=== PATIENT | female | born 1965 | race Caucasian/White ===

== ENCOUNTER → 2016-05-15 | Outpatient (CLI) | payer BC, OTHER ==
[~2016-05-15] MED LIST: ALBUAER2 INH; B-COCAP2 PO; BND25X PO; MESA400T PO; VALTREX PO; ZYRUNK PO
== END | disposition home or self-care (01) ==
LOC: C.PAPS 11:51
PROVIDERS: ATTEND Obstetrics & Gynecology
DX: Z01.419 Encounter for gynecological examination (general) (routine) without abnormal findings (principal)

== ENCOUNTER → 2016-06-18 | Outpatient (CLI) | payer OTHER | END | disposition home or self-care (01) | LOC: C.LABSPEC 09:22 | PROVIDERS: ATTEND Internal Medicine | DX: K51.20 Ulcerative (chronic) proctitis without complications (principal) ==

== ENCOUNTER → 2016-06-18 | Outpatient (CLI) | payer OTHER | END | disposition home or self-care (01) | LOC: C.MAMM 08:24 | PROVIDERS: ATTEND Internal Medicine | DX: K51.20 Ulcerative (chronic) proctitis without complications (principal) ==

== ENCOUNTER → 2016-11-01 | Outpatient (CLI) | payer OTHER | END | disposition home or self-care (01) | LOC: C.LAB 09:27 | DX: R15.9 Full incontinence of feces (principal); R10.32 Left lower quadrant pain; K62.5 Hemorrhage of anus and rectum; K51.20 Ulcerative (chronic) proctitis without complications ==

== ENCOUNTER → 2017-05-19 | Outpatient (CLI) | payer OTHER | END | disposition home or self-care (01) | LOC: C.PAPS 09:32 | PROVIDERS: ATTEND Obstetrics & Gynecology | DX: Z01.419 Encounter for gynecological examination (general) (routine) without abnormal findings (principal) ==

== ENCOUNTER → 2017-05-29 | Outpatient (CLI) | payer OTHER ==
--- NOTE | 2017-05-29 14:35 | MAMMOGRAPHY REPORT ---
BILATERAL DIGITAL DIAGNOSTIC MAMMOGRAM TOMOSYNTHESIS WITH CAD AND TARGETED BILATERAL ULTRASOUND: 2017 CLINICAL HISTORY: Six-month follow-up of right breast masses. Family history of breast cancer. The patient reports no current complaints. TECHNIQUE: Breast tomosynthesis in addition to standard 2D mammography was performed. Current study was also evaluated with a Computer Aided Detection (CAD) system. Bilateral CC and MLO 2-D and tomosy nthesis images were obtained. COMPARISON: Comparison is made to exams dated: 01/03/2016 ultrasound, 01/03/2016 mammogram, 07/03/2015 ult rasound, 07/03/2015 mammogram, 06/27/2015 mammogram, and 06/23/2014 mammogram - [facility]. BREAST COMPOSITION: The tissue of both breasts is heterogeneously dense, which may obscure small mas ses. FINDINGS: There is a lobulated 10 mm mass within the right upper outer quadrant which appears slight ly increased compared to prior exams. Additionally, there is a lobulated 11 x 7 mm mass in the left 9:00 anterior breast which also appears slightly increased compared to the prior 2015 exam. The lakia gonzales of both breasts are stable compared to prior exams. At least 2 other lobulated benign-appearin g masses seen within the right breast on the tomosynthesis images do not appear significantly changed . A biopsy marker clip is again noted within the right medial breast from prior benign biopsy. Targeted ultrasound was performed of the previously seen right breast masses for which a follow-up wa s recommended. In the right breast at 10:00, 3 cm from the nipple, there is a lobulated anechoic mas s with multiple thin internal septations measuring 10 x 3 mm. This appears slightly increased compar ed to prior exams although likely represents a cyst cluster. In the right breast at 8:00 periareolar region (previously labeled subareolar region), there is a lobulated circumscribed anechoic mass with a few thin internal septations measuring 7 x 5 x 5 mm, not significantly changed. An adjacent simil ar-appearing circumscribed anechoic mass with a thin internal septation measuring 6 x 4 x 7 mm is see n within the right breast at 7:00 periareolar region, also not significantly changed. Targeted ultra sound was performed of the left 9:00 breast in the region of the increasing mammographic mass. In th e left breast at 9:00 periareolar region, there is a lobulated anechoic mass with multiple thin inter nal septations, measuring 9 x 7 x 5 mm. This corresponds with the increasing mammographic mass. All of the bilateral breast masses appear similar and likely represent microcyst clusters. However, pap illary lesions can sometimes have a similar appearance. Recommend ultrasound-guided biopsy of the mo st prominent mass, in the left 9:00 breast. IMPRESSION: ACR BI-RADS CATEGORY 4: SUSPICIOUS, TARGETED ULTRASOUND ACR BI-RADS CATEGORY 4: SUSPICIO US Multiple bilateral similar-appearing masses, two of which have slightly increased compared to prior e xams. The masses likely represent microcyst clusters, however, papillary lesions can sometimes have a similar appearance. Recommend ultrasound guided core needle biopsy of the most prominent mass whic h has increased, in the left 9:00 breast. Management of the other similar-appearing masses will be b ased on the pathology results of the left breast biopsy. A phone call was made to the physician's office to confirm faxed results were received. The patient has been verbally notified of the results. She tentatively scheduled the biopsy before leaving the [facility]. Approximately 10% of breast cancers are not detected with mammography. A negative mammographic report should not delay biopsy if a clinically suggestive mass is present. Rose Bolanos M.D. ah/:05/29/2017 12:14:45 Floor Assembler: Rosalinda NATH)(Giat), [facility] letter sent: Abnormal 4/5 BI-RADS Code: ACR BI-RADS Category 4: Suspicious Ultrasound BI-RADS: ACR BI-RADS Category 4: Suspici ous
== END | disposition home or self-care (01) ==
LOC: C.MAMM 08:11
PROVIDERS: ATTEND Obstetrics & Gynecology
DX: R92.2 Inconclusive mammogram (principal); Z80.3 Family history of malignant neoplasm of breast

== ENCOUNTER → 2017-06-11 | Outpatient (CLI) | payer OTHER ==
--- NOTE | 2017-06-11 09:00 | Discharge Instructions ---
Discharge Instructions Procedure Procedure Date: Jun 11, 2017. Reason for visit: Left Mass. Discharge Discharge Date: Jun 11, 2017. Discharge Diagnosis: status post breast biopsy Instructions Activity Recommendations: Additional Limitations (see below) Return to School/Work: no limitations Recommended Home Diet: No Limitations Provider Instructions: ACTIVITY RECOMMENDATIONS: * No lifting, pushing, pulling or exercising the affected side for three days. RETURN TO SCHOOL/WORK: * You may return to work/school after the procedure, but do not perform any strenuous activities for 24 to 48 hours. MEDICATIONS: * Tylenol (two 325 mg) every four to six hours if needed for mild pain (if not allergic to Tylenol). DIET: * Resume previous diet. SPECIAL CARE INSTRUCTIONS: * Keep biopsy site dry for 24 hours. May shower after 24 hours, but do not soak (bathe) incision. * May remove Tegaderm (plastic patch) tomorrow AFTER showering. * Leave the steri-strips on for one week. Allow the steri-strips to fall off by themselves. If not off after one week, you may remove them. You may place a Bandaid crosswise over the strips, if desired. * Apply ice 10 minutes on and 10 minutes off as needed. * Wear a bra at bedtime to sleep more comfortably for 2-3 days. * Your referring physician should have the results after approximately 5 to 7 business days. * Call for unusual bleeding, fever, drainage, etc or if you have any questions call during normal business hours or after hours call Dr Bolanos, . FOLLOW UP VISIT: Follow-up with Referring Physician as scheduled. Allergies Coded Allergies: No Known Allergies (Verified , 06/10/02) Betty Gaona Recommendations: Call your doctor if: * Temperature above 101 degrees * Pain not relieved by pain medicine ordered * There is increased drainage or redness from any incision * You have any unanswered questions or concerns. Your Doctors Instructions noted above were prepared by provider Rose Bolanos. Patient Signature Section: Patient Instructions Signature Page Josefina Stoll Patient (or Guardian) Signature/Date: I have read and understand the instructions given to me by my caregivers. Caregiver/RN/Doctor Signature/Date: The above-named patient and/or guardian has received patient instructions on this date. + Original Patient Signature Page (only) stays with chart. Please make copy for patient.
--- NOTE | 2017-06-11 15:21 | MAMMOGRAPHY REPORT ---
ULTRASOUND GUIDED BIOPSY LEFT BREAST: 06/11/2017 CLINICAL HISTORY: Left 9:00 periareolar breast mass. PATIENT CONSENT: The procedure, risks and benefits were discussed with the patient and informed writt en consent was obtained. A timeout was performed immediately prior to the procedure. PROCEDURE DESCRIPTION: With ultrasound guidance, aseptic technique, and lidocaine as the local anesth etic (1% lidocaine to anesthetize the skin and 1% lidocaine with epinephrine to anesthetize the deepe r tissues), the mass of concern in the left 9:00 periareolar breast was sampled 3 times with a [employer] biopsy needle. Immediately thereafter, with ultrasound guidance, aseptic technique, and lidocaine as the local anesthetic, a metallic localizer clip was placed at the biopsy site. Direct p ressure was applied to the site immediately post procedure and hemostasis was achieved. Postprocedur e unilateral mammograms were performed to confirm placement of the clip in the expected location of t he breast mass. The patient tolerated the procedure without complication. She was given wound care instructions. The specimens were sent to pathology for analysis. COMPARISON: Comparison is made to exams dated: 05/29/2017 mammogram, 05/29/2017 ultrasound, and 01/03/2016 ultrasound - [facility]. IMPRESSION: ULTRASOUND GUIDED BIOPSY Ultrasound-guided core needle biopsy of the left 9:00 periareolar breast mass, with clip placement. The patient will receive pathology results from her referring provider. Rose Bolanos M.D. ah/:06/11/2017 09:01:16 It Infrastructure Manager: Rosalinda NATH)(M), [facility]
--- NOTE | 2017-06-11 15:25 | MAMMOGRAPHY REPORT ---
UNILATERAL LEFT DIGITAL DIAGNOSTIC MAMMOGRAM TOMOSYNTHESIS: 06/11/2017 CLINICAL HISTORY: Status post left breast biopsy. TECHNIQUE: Breast tomosynthesis in addition to standard 2D mammography was performed. Postprocedura l left CC and ML tomosynthesis images were obtained. COMPARISON: Comparison is made to exams dated: 05/29/2017 mammogram, 05/29/2017 ultrasound, 01/03/2016 ult rasound, 01/03/2016 mammogram, 07/03/2015 ultrasound, and 07/03/2015 mammogram - [facility]. BREAST COMPOSITION: The tissue of the left breast is heterogeneously dense, which may obscure small masses. FINDINGS: A new ribbon-shaped biopsy marker clip is seen at the site of the biopsied mass in the lef t 9:00 periareolar breast. No significant postbiopsy hematoma is seen. IMPRESSION: POST PROCEDURE IMAGING FOR MARKER PLACEMENT New biopsy marker clip status post left breast biopsy. Pathology results are pending. Approximately 10% of breast cancers are not detected with mammography. A negative mammographic report should not delay biopsy if a clinically suggestive mass is present. Rose Bolanos M.D. ah/:06/11/2017 09:06:48 Electroplating Technician: Rosalinda CARCAMO(Jayden)(M), [facility] BI-RADS Code: Post Procedure Imaging For Marker Placement
== END | disposition home or self-care (01) ==
LOC: C.MAMM 08:11
PROVIDERS: ATTEND Obstetrics & Gynecology
DX: N63.20 Unspecified lump in the left breast, unspecified quadrant (principal); N60.12 Diffuse cystic mastopathy of left breast

== ENCOUNTER → 2017-08-21 | Outpatient (CLI) | payer OTHER ==
--- NOTE | 2017-08-21 16:01 | DIAGNOSTIC IMAGING REPORT ---
CHEST 2 VIEWS ROUTINE CLINICAL HISTORY: CHRONIC COUGH dyspnea COMPARISON STUDY: 11/17/2014 FINDINGS: The bones soft tissues and hemidiaphragms are normal. The cardiomediastinal silhouette is normal. The lungs are clear. The pulmonary vasculature is normal. IMPRESSION: Negative chest. The above report was generated using voice recognition software. It may contain grammatical, syntax or spelling errors. Electronically signed by: Christian Moore M.D. 08/21/2017 3:59 PM Dictated Date/Time: 08/21/2017 3:59 PM
== END | disposition home or self-care (01) ==
LOC: C.RAD 15:30
PROVIDERS: ATTEND Internal Medicine
DX: R05 Cough (principal)

== ENCOUNTER → 2017-09-04 | Outpatient (CLI) | payer OTHER ==
--- NOTE | 2017-09-05 09:34 | PULMONARY FUNCTION TEST ---
CLINICAL DATA: A 52-year-old female with a height of 63 inches and a weight of [address] Angeles for evaluation of persistent cough. The patient is currently on Advair 250/50 one puff b.i.d. and albuterol HFA as needed. Spirometry pre- and post-bronchodilator was performed. FINDINGS: Pre-bronchodilator demonstrates mild obstructive small airways disease. FVC is 112% of predicted. FEV1 was 99% of predicted. [id number] was 63% of predicted. There was very slight improvement after inhaled bronchodilator. FVC improved 2% to 114% of predicted. FEV1 improved 3% to 102% of predicted. [id number] improved 8% to 68% of predicted. IMPRESSION: Mild obstructive airways disease with minimal improvement after inhaled bronchodilator. This is consistent with mild asthma. MTDD
== END | disposition home or self-care (01) ==
LOC: C.RC 10:47
PROVIDERS: ATTEND Internal Medicine
DX: R05 Cough (principal)

== ENCOUNTER 2023-08-03 19:24 | Inpatient (IN) ==
--- NOTE | 2023-08-03 19:45 | Emergency Department Note ---
Impression & Plan Intractable nausea, Abdominal pain, Acute hypokalemia, Hypomagnesemia, Colitis ED Provider Note HISTORY OF PRESENT ILLNESS: Patient is a 58-year-old female presenting with lower abdominal pain and vomiting. Patient reports that symptoms started yesterday and she has been unable to tolerate oral intake secondary to multiple episodes of vomiting today. 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 She has had a cholecystectomy. Denies any fevers. Reports she took Zofran at 10 AM today but continue to vomit multiple times throughout the day. She also has been having some liquid stool out of her rectum. Reports that her ostomy bag has not been feeling as much is normal but it has been filling with air. She denies any fevers. Denies any recent sick contact exposures or recent travel. Denies any chest pain or shortness of breath. Currently complaining of a cramping lower abdominal pain and nausea. ROS: as above PHYSICAL EXAM: Constitutional: Patient appears in no acute distress. HENT: Head: Normocephalic and atraumatic. Eyes: EOMI, PERRL Mouth/Throat: Mucous membranes moist. Neck: Trachea midline. Neck supple. Cardiovascular: Tachycardic with regular rhythm. No murmurs, rubs or gallops. Intact distal pulses. Pulmonary/Chest: No respiratory distress. Breath sounds clear and equal bilaterally. No wheezes or rales. Abdominal: Abdomen soft, no rebound or guarding. Lower abdominal TTP. Ileostomy on right-side of abdomen. Musculoskeletal: No edema, tenderness or deformity noted. Skin: Warm and dry. No rash, erythema, pallor or cyanosis Psychiatric: Appropriate mood and affect for situation. Neurological: Alert and keenly responsive. CN II-XII grossly intact, moving all extremities equally and fully. MDM: - Vitals signs showed hypertension and tachycardia - History obtained via patient. History as above. - Chronic conditions affecting care: Crohn's disease - Differential diagnoses include, but are not limited to: small bowel obstruction; colitis; viral syndrome; electrolyte abnormality; dehydration; pancreatitis - Order placed for continuous cardiac monitoring. At this time, monitor showed rate of 89 bpm with normal sinus rhythm, per my interpretation. - External medical records reviewed. Primary care visit note dated 03/20/2019 was reviewed. Patient followed in their clinic for conjunctivitis. - Laboratory workup interpreted by myself showed normal WBC; slight hypokalemia (K 3.3); hypomagnesemia (Mg 1.3); normal creatinine; normal lipase - Viral respiratory panel negative - CT abdomen/pelvis with IV contrast showed "right lower quadrant ostomy with large fat and omentum-containing abdominal wall ventral hernia and diffuse wall thickening of ascending, transverse and proximal descending colon concerning for infectious or inflammatory process," per radiology - Patient given 1L NS, 4 mg IV zofran and 50 mcg IV fentanyl for symptomatic management. - Given 1g IV magnesium for electrolyte replacement. - On reassessment, patient reports she still feels very nauseous and is having recurrence of her pain. Discussed results with the patient. She knows that her ventral wall hernia and is soft and nontender to palpation. Admit for IV hydration and further electrolyte abnormalities. An additional 1L NS, 5 mg IV compazine and 25 mg IV benadryl ordered for patient's continued nausea. Given a total of 20 mEq IV potassium for replacement. Given 0.5 mg IV dilaudid for continued abdominal pain. - Discussion was had with telephonic nurse case manager about patient's case and need for admission - Hospitalist consulted for admission - Patient admitted to [facility] service for further evaluation and management. ASSESSMENT AND PLAN: Diagnosis: intractable nausea; hypomagnesemia; acute hypokalemia; colitis; abdominal pain Plan: admit Past Med/Surg History Medical History Crohn disease H/O sarcoma of soft tissue History of abnormal mammogram History of dysfunctional uterine bleeding History of ovarian cyst Ileostomy in place Leiomyoma of uterus, unspecified Surgical History H/O partial resection of colon H/O resection of small bowel History of delivery History of endometrial ablation History of wisdom tooth extraction S/P cholecystectomy Family History Mother Breast cancer Ovarian cancer Other SCC (squamous cell carcinoma) Denies family history of Crohn's disease Colorectal cancer Social History Smoking Status: Never smoker Do You Dip or Chew Tobacco: No; Hx Alcohol Use: Yes Hx Substance Use: No Preferred Language: Ukrainian marital status: Current Living Situation: Spouse Feels Safe at Home: Yes Allergies Allergies Allergy/AdvReac Type Severity Reaction Status Date / Time methotrexate Allergy Intermediate DEVELOPED Verified 08/03/23 20:24 ANTIBODIES-DIDN'T WORK adalimumab [From Humira] AdvReac Intermediate DEVELOPED Verified 08/03/23 20:24 ANTIBODIES-DIDN'T WORK infliximab [From Remicade] AdvReac Intermediate DEVELOPED Verified 08/03/23 20:24 ANTIBODIES-DIDN'T WORK vedolizumab [From Entyvio] AdvReac Intermediate DIDN'T Verified 08/03/23 20:24 WORK FAST ENOUGH TO HELP WITH CROHN'S DISEASE. ENVIRONMENTAL Allergy Intermediate ITCHY Uncoded 08/03/23 20:24 EYES, SNEEZING, CONGESTION Home Meds Home Medications Medication Instructions Recorded Confirmed cetirizine 10 mg capsule (Zyrtec) 10 mg PO DAILY 02/22/19 08/03/23 diphenhydramine HCl 25 mg capsule 25 mg PO HS PRN Sleep 02/22/19 08/03/23 (Benadryl) pseudoephedrine HCl 30 mg tablet 30 mg PO DIRECTED PRN Congestion 02/22/19 08/03/23 calcium carbonate (Calcium 600) 600 mg PO BID 09/25/21 08/03/23 dicyclomine 20 mg tablet 20 mg PO TID PRN ABD PAIN 09/25/21 08/03/23 glucosamine HCl 1,500 mg tablet 1,500 mg PO DAILY 09/25/21 08/03/23 acetaminophen 500 mg tablet 1,500 mg PO BID PRN Pain 05/03/22 08/03/23 (Tylenol Extra Strength) cholecalciferol (vitamin D3) 50 2,000 unit PO DAILY 05/03/22 08/03/23 mcg (2,000 unit) capsule (Vitamin D3) valacyclovir 1 gram tablet 2,000 mg PO Q12H PRN Cold Sores 05/03/22 08/03/23 upadacitinib 45 mg tablet,extended 45 mg PO HS 07/09/23 08/03/23 release 24 hr (Rinvoq) azelastine 137 mcg (0.1 %) nasal 2 spray intranasal DAILY 08/03/23 08/03/23 spray aerosol cyclosporine 0.05 % eye drops in a 1 drp OPB BID 08/03/23 08/03/23 dropperette (Restasis) Previous Rx's Medication Instructions Recorded albuterol sulfate 90 mcg/actuation 2 puff inhalation Q6H PRN 01/29/23 aerosol inhaler (Ventolin HFA) Shortness Of Breath Or Wheezing #8.5 grams Results & Data (ED) Vital Signs Vital Signs - 24 hr 08/03/23 19:26 08/03/23 19:59 08/03/23 20:00 Temperature 36.8 C Temperature Source Oral Pulse Rate 104 H 87 90 Pulse Rate from SpO2 Sensor 90 Respiratory Rate 17 16 Respiratory Effort / Characteristics Non-Labored Spontaneous Respiratory Depth Normal Respiratory Pattern Regular Blood Pressure 176/84 H 168/84 H Blood Pressure Mean 114 112 Pulse Oximetry 95 95 Oxygen Delivery Method Room Air Room Air Sepsis Recent Fever Within 48 Hours No Sepsis New/Unexplained Change in Mental Status No Sepsis Action Taken by Nursing No Action Required 08/03/23 20:30 08/03/23 21:30 08/03/23 22:00 Temperature Temperature Source Pulse Rate 93 H 93 H 89 Pulse Rate from SpO2 Sensor 94 H 94 H 90 Respiratory Rate 20 20 18 Respiratory Effort / Characteristics Respiratory Depth Respiratory Pattern Blood Pressure 169/62 H 170/87 H 157/83 H Blood Pressure Mean 97 114 107 Pulse Oximetry 96 94 92 Oxygen Delivery Method Room Air Room Air Room Air Sepsis Recent Fever Within 48 Hours Sepsis New/Unexplained Change in Mental Status Sepsis Action Taken by Nursing Laboratory Data 08/03/23 20:10 08/03/23 20:10 Lab Results 08/03/23 08/03/23 08/03/23 Range/Units 19:48 20:10 21:38 WBC 7.77 (4.8-10.8) K/ul RBC 3.99 L (4.20-5.40) M/uL Hgb 12.9 (12.0-16.0) g/dl Hct 37.9 (37.0-47.0) % MCV 95.0 (80.0-100.0) fL MCH 32.3 (25.0-34.0) pg MCHC 34.0 (32.0-36.0) g/dL RDW Std Deviation 42.9 (36.4-46.3) fL RDW Coeff of Alicia 12.3 (11.5-14.5) % Plt Count 287 (130-400) K/uL MPV 10.0 (9.4-12.4) fL Immature Gran % (Auto) 0.3 % Neut % (Auto) 87.5 % Lymph % (Auto) 5.8 % [place] % (Auto) 6.3 % Eos % (Auto) 0.0 % Baso % (Auto) 0.1 % Neut # (Auto) 6.80 H (1.40-6.50) K/uL Lymph # (Auto) 0.45 L (1.20-3.40) K/uL [place] # (Auto) 0.49 (0.11-0.59) K/uL Eos # (Auto) 0.00 (0.00-0.50) K/uL Baso # (Auto) 0.01 (0.00-0.20) K/uL Immature Gran # (Auto) 0.02 (0.01-0.20) K/uL Sodium 138 (136-145) mmol/L Potassium 3.3 L (3.5-5.1) mmol/L Chloride 104 (98-107) mmol/L Carbon Dioxide 23 (21-32) mmol/L Anion Gap 11 (3-11) BUN 12 (6-23) mg/dl Creatinine 0.80 (0.6-1.2) mg/dl Est Cr Clr Drug Dosing 79.3 ml/min Est GFR ( Amer) 94.2 ml/min Est GFR (Non-Af Amer) 81.3 ml/min BUN/Creatinine Ratio 15.0 (10-20) Glucose 150 H (70-99(Fasting)) mg/dl Lactate 1.9 (0.4-2.0) mmol/L Calcium 8.9 (8.6-10.3) mg/dl Magnesium 1.3 L (1.7-2.4) mg/dl Total Bilirubin 0.7 (0.2-1.0) mg/dl AST 15 (13-39) U/L ALT 14 (7-52) U/L Alkaline Phosphatase 63 (34-104) U/L Total Protein 7.8 (6.0-8.3) gm/dl Albumin 4.7 (3.4-5.0) gm/dl Globulin 3.1 (2.5-4.0) gm/dl Albumin/Globulin Ratio 1.5 (0.9-2) Lipase 8 L (11-82) U/L Urine Color Yellow Urine Appearance Cloudy A (Clear) Urine pH 5.0 (4.5-7.5) Ur Specific [place] 1.019 (1.000-1.030) Urine Protein Negative (Negative) Urine Glucose (UA) Negative (Negative) Urine Ketones Trace H (Negative) Urine Blood 1+ H (Negative) Urine Nitrite Negative (Negative) Urine Bilirubin Negative (Negative) Urine Urobilinogen Negative (Negative) Ur Leukocyte Esterase Negative (Negative) Urine WBC (Auto) 1-5 (0-5) /hpf Urine RBC (Auto) 0-4 (0-4) /hpf U Hyaline Cast (Auto) 1-5 (0-5) /lpf U Epithel Cells (Auto) 10-20 H (0-5) /lpf Urine Bacteria (Auto) Negative (Negative) Adenovirus (PCR) Not Detected (NotDetected) B. pertussis DNA (PCR) Not Detected (NotDetected) B.parapertussis DNA PCR Not Detected (NotDetected) C. pneumoniae DNA (PCR) Not Detected (NotDetected) Coronavirus OC43 (PCR) Not Detected (NotDetected) Coronavirus HKU1 (PCR) Not Detected (NotDetected) Coronavirus 229E (PCR) Not Detected (NotDetected) SARS-CoV-2 (PCR) Not Detected (NotDetected) Coronavirus NL63 (PCR) Not Detected (NotDetected) Human Metapneumovir PCR Not Detected (NotDetected) Influenza Type A (PCR) Not Detected (NotDetected) Influenza Type B (PCR) Not Detected (NotDetected) M. pneumoniae (PCR) Not Detected (NotDetected) Parainfluenza 1 (PCR) Not Detected (NotDetected) Parainfluenza 2 (PCR) Not Detected (NotDetected) Parainfluenza 3 (PCR) Not Detected (NotDetected) Parainfluenza 4 (PCR) Not Detected (NotDetected) RSV (PCR) Not Detected (NotDetected) Entero/Rhino (PCR) Not Detected (NotDetected) Administered Medications Discontinued Medications Fentanyl Citrate (Fentanyl Citrate Pf 100 Mcg/2 Ml Vial) 50 mcg IV NOW STA Stop: 08/03/23 21:18 Last Admin: 08/03/23 21:34 Dose: 50 mcg [place] [facility] [place] Chloride (Nss) 1,000 mls @ 999 mls/hr IV .Q1H1M ONE Stop: 08/03/23 20:31 Last Infusion: 08/03/23 21:05 Dose: Infused [place]ed [place] [facility] [place]: 08/03/23 19:59 Dose: 999 mls/hr Documented By[place] [facility] [place] Magnesium Sulfate/Dextrose (Magnesium Sulfate / D5w) 1 gm in 100 mls @ 100 mls/hr IV NOW STA Stop: 08/03/23 21:52 Last Admin: 08/03/23 21:51 Dose: 100 mls/hr Documented By: [facility] [place] Ioversol (Optiray 320 100ml) 90 ml IV ONCE ONE Stop: 08/03/23 21:45 Last Admin: 08/03/23 21:44 Dose: 90 ml Documented By: LYUBOV Ondansetron HCl (Ondansetron Inj 2 Mg/Ml 2 Ml Vial) 4 mg IV NOW STA Stop: 08/03/23 19:32 Last Admin: 08/03/23 19:59 Dose: 4 mg Documented By: [facility] [place] Data Radiologist's Impression: Abdomen/Pelvis CT 08/03/23 19:31 Exam(s): CT ABDOMEN + PELVIS With Contrast IV Amt: 90ml EXAM: CT Abdomen and Pelvis With Intravenous Contrast CLINICAL HISTORY: Reason for exam: vomiting; lower abdominal cramping. TECHNIQUE: Axial computed tomography images of the abdomen and pelvis with intravenous contrast. CTDI is 22.49 mGy and DLP is 1142.97 mGy-cm. Automated exposure control was utilized for the study. A dose lowering technique was utilized adhering to the principles of ALARA. CONTRAST: Patient received 90ml of IV contrast COMPARISON: No relevant prior studies available. FINDINGS: Lung bases: Unremarkable. No mass. No consolidation. ABDOMEN: Liver: Fatty infiltration of the liver. Gallbladder and bile ducts: Prior cholecystectomy. No ductal dilation. Pancreas: Unremarkable. No mass. No ductal dilation. Spleen: Unremarkable. No splenomegaly. Adrenals: Unremarkable. No mass. Kidneys and ureters: Unremarkable. No solid mass. No hydronephrosis. Stomach and bowel: Right lower quadrant ostomy with large fat and omentum-containing right lateral abdominal wall ventral hernia. Diffuse wall thickening of the ascending, transverse and proximal descending colon with scattered diverticuli and moderate mesenteric edema and prominent vasa recta, likely represents infectious or inflammatory process. PELVIS: Appendix: No findings to suggest acute appendicitis. Bladder: Unremarkable. No mass. Reproductive: Unremarkable as visualized. ABDOMEN and PELVIS: Intraperitoneal space: Unremarkable. No free air. No significant fluid collection. Bones/joints: No acute fracture. No dislocation. Soft tissues: See above. Vasculature: 9 mm partially calcified distal splenic artery aneurysm. A second partially calcified splenic artery aneurysm measuring 6 mm. Lymph nodes: Unremarkable. No enlarged lymph nodes. IMPRESSION: 1. Right lower quadrant ostomy with large fat and omentum-containing right lateral abdominal wall ventral hernia. 2. Diffuse wall thickening of the ascending, transverse and proximal descending colon with scattered diverticuli and moderate mesenteric edema and prominent vasa recta, likely represents infectious or inflammatory process. Electronically signed by: Nelly Colon MD 08/03/23 22:23 PM Discharge Plan Visit Data Chief Complaint: Vomiting Stated Complaint: VOMITING ED Provider: Ruby Fermin Discharge Problem: Intractable nausea, Abdominal pain, Acute hypokalemia, Hypomagnesemia, Colitis Forms Stand Alone Forms: My [facility] [employer] Prescriptions Prescriptions: No Action Zyrtec 10 mg capsule 10 mg PO DAILY diphenhydramine HCl [Benadryl] 25 mg capsule 25 mg PO HS PRN (Reason: Sleep) Patient Comments: pt has been taking every evening Rx Instructions: PER PT "USUALLY EVERY NIGHT". pseudoephedrine HCl 30 mg tablet 30 mg PO DIRECTED PRN (Reason: Congestion) Rinvoq 45 mg tablet extended release 24 hr 45 mg PO HS calcium carbonate [Calcium 600] 600 mg calcium (1,500 mg) tablet 600 mg PO BID dicyclomine 20 mg tablet 20 mg PO TID PRN (Reason: ABD PAIN) glucosamine HCl 1,500 mg tablet 1,500 mg PO DAILY Rx Instructions: administer with a meal albuterol sulfate [Ventolin HFA] 90 mcg/actuation HFA aerosol inhaler 2 puff INH Q6H PRN (Reason: Shortness Of Breath Or Wheezing) Qty: 8.5 3RF acetaminophen [Tylenol Extra Strength] 500 mg Tablet 1,500 mg PO BID PRN (Reason: Pain) cholecalciferol (vitamin D3) [Vitamin D3] 50 mcg (2,000 unit) Capsule 2,000 unit PO DAILY valacyclovir 1 gram tablet 2,000 mg PO Q12H PRN (Reason: Cold Sores) Rx Instructions: Take 2 tablets twice a day x 1 day at first sign of symptoms. cyclosporine [Restasis] 0.05 % dropperette 1 drp OPB BID azelastine 137 mcg (0.1 %) aerosol,spray 2 spray intranasal DAILY Rx Instructions: USE 2 SPRAYS IN NOSTRILS DAILY Referrals Referrals: Tammy Auguste DO [Primary Care Provider] -
[2023-08-03] MEDS: ONDANSETRON INJ 2 MG/ML 2 ML VIAL IV STA (19:59)
[2023-08-03] MEDS: SODIUM CHLORIDE 0.9% 1,000 ML IV ONE ×2 (19:59→23:27)
[2023-08-03 20:39] LABS: Basophils # (auto) 0.01 K/uL (0.00-0.20); Basophils % (auto) 0.1 %; Hematocrit (blood only) 37.9 % (37.0-47.0); Hemoglobin 12.9 g/dl (12.0-16.0); Immature Granulocytes # (auto) 0.02 K/uL (0.01-0.20); Immature Granulocytes % (auto) 0.3 %; Lymphocytes # (auto) 0.45 K/uL (1.20-3.40); Lymphocytes % (auto) 5.8 %; Mean Corpuscular Hemoglobin 32.3 pg (25.0-34.0); Monocytes # (auto) 0.49 K/uL (0.11-0.59); Monocytes % (auto) 6.3 %; Neutrophils % (auto) 87.5 %; Platelet Count 287 K/uL (130-400); RDW Coefficient of Variation 12.3 % (11.5-14.5); RDW Standard Deviation 42.9 fL (36.4-46.3); Red Blood Count 3.99 M/uL (4.20-5.40); White Blood Count 7.77 K/ul (4.8-10.8)
[2023-08-03 20:52] LABS: Albumin Globulin Ratio 1.5 (0.9-2); Albumin Level 4.7 gm/dl (3.4-5.0); Bilirubin,Total 0.7 mg/dl (0.2-1.0); Calcium 8.9 mg/dl (8.6-10.3); Creatinine Clr Calc Pharmacy 79.3 ml/min; Est GFR (African American) 94.2 ml/min; Est GFR (Non-African American) 81.3 ml/min; Globulin 3.1 gm/dl (2.5-4.0); Magnesium 1.3 mg/dl (1.7-2.4); Potassium 3.3 mmol/L (3.5-5.1); Total Protein 7.8 gm/dl (6.0-8.3)
[2023-08-03 21:05] LABS: Adenovirus PCR Not Detected (NotDetected); Bordetella parapertussis PCR Not Detected (NotDetected); Bordetella pertussis PCR Not Detected (NotDetected); Chlamydia pneumoniae PCR Not Detected (NotDetected); Coronavirus 229E PCR Not Detected (NotDetected); Coronavirus CoV-2 (COVID19)PCR Not Detected (NotDetected); Coronavirus HKU1 PCR Not Detected (NotDetected); Coronavirus NL63 PCR Not Detected (NotDetected); Coronavirus OC43PCR Not Detected (NotDetected); Human Metapneumovirus PCR Not Detected (NotDetected); Influenza A PCR Not Detected (NotDetected); Influenza B PCR Not Detected (NotDetected); Mycoplasma pneumoniae PCR Not Detected (NotDetected); Parainfluenza Virus 1 PCR Not Detected (NotDetected); Parainfluenza Virus 2 PCR Not Detected (NotDetected); Parainfluenza Virus 3 PCR Not Detected (NotDetected); Parainfluenza Virus 4 PCR Not Detected (NotDetected); Respiratory Syncytial VirusPCR Not Detected (NotDetected); Rhinovirus/Enterovirus PCR Not Detected (NotDetected)
[2023-08-03] MEDS: fentaNYL citrate PF 100 MCG/2 ML VIAL IV STA (21:34)
[2023-08-03] MEDS: OPTIRAY 320 100ml IV ONE (21:44)
[2023-08-03] MEDS: MAGNESIUM SULFATE / D5W 1 GM/100 ML BAG IV STA (21:51)
[2023-08-03 21:56] LABS: Appearance Urine Cloudy (Clear); Bacteria Urine Automated Negative (Negative); Bilirubin Urine Negative (Negative); Blood Urine 1+ (Negative); Color Urine Yellow; Glucose Urine UA Negative (Negative); Ketones Urine Trace (Negative); Leukocyte Esterase Urine Negative (Negative); Nitrite Urine Negative (Negative); Protein Urine Negative (Negative); RBC Urine Automated 0-4 /hpf (0-4); Specific Gravity Urine 1.019 (1.000-1.030); Urobilinogen Urine Negative (Negative)
--- NOTE | 2023-08-03 22:24 | CT Scan Report ---
Exam(s): CT ABDOMEN + PELVIS With Contrast IV Amt: 90ml EXAM: CT Abdomen and Pelvis With Intravenous Contrast CLINICAL HISTORY: Reason for exam: vomiting; lower abdominal cramping. TECHNIQUE: Axial computed tomography images of the abdomen and pelvis with intravenous contrast. CTDI is 22.49 mGy and DLP is 1142.97 mGy-cm. Automated exposure control was utilized for the study. A dose lowering technique was utilized adhering to the principles of ALARA. CONTRAST: Patient received 90ml of IV contrast COMPARISON: No relevant prior studies available. FINDINGS: Lung bases: Unremarkable. No mass. No consolidation. ABDOMEN: Liver: Fatty infiltration of the liver. Gallbladder and bile ducts: Prior cholecystectomy. No ductal dilation. Pancreas: Unremarkable. No mass. No ductal dilation. Spleen: Unremarkable. No splenomegaly. Adrenals: Unremarkable. No mass. Kidneys and ureters: Unremarkable. No solid mass. No hydronephrosis. Stomach and bowel: Right lower quadrant ostomy with large fat and omentum-containing right lateral abdominal wall ventral hernia. Diffuse wall thickening of the ascending, transverse and proximal descending colon with scattered diverticuli and moderate mesenteric edema and prominent vasa recta, likely represents infectious or inflammatory process. PELVIS: Appendix: No findings to suggest acute appendicitis. Bladder: Unremarkable. No mass. Reproductive: Unremarkable as visualized. ABDOMEN and PELVIS: Intraperitoneal space: Unremarkable. No free air. No significant fluid collection. Bones/joints: No acute fracture. No dislocation. Soft tissues: See above. Vasculature: 9 mm partially calcified distal splenic artery aneurysm. A second partially calcified splenic artery aneurysm measuring 6 mm. Lymph nodes: Unremarkable. No enlarged lymph nodes. IMPRESSION: 1. Right lower quadrant ostomy with large fat and omentum-containing right lateral abdominal wall ventral hernia. 2. Diffuse wall thickening of the ascending, transverse and proximal descending colon with scattered diverticuli and moderate mesenteric edema and prominent vasa recta, likely represents infectious or inflammatory process. Electronically signed by: Nelly Colon MD 08/03/23 22:23 PM
--- NOTE | 2023-08-03 22:53 | History & Physical Report ---
Date of Service August 03, 2023 Assessment & Plan (1) Hypomagnesemia: Plan: Pt is a 58 yo female with PMH of Crohn's dx (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 Vomiting - lab work significant for no leukocytosis, lipase WNL, ESR neg, CRP 9.68 - vitals stable, afebrile, non toxic appearing - RVP negative; stool PCR neg - CTAP showed large right lateral abdominal wall hernia in addition to diffuse wall thickening of the ascending, transverse, and proximal descending colon (most likely secondary to infection or inflammation) - do not suspect acute flare of Crohn's disease at this time; however, it is possible especially since switching her maintenance medications ~ 2 mths ago; will hold off on steroids until GI evaluation - pt does not appear to have an acute bacterial infection based on her non toxic appearance and stable VS; defer antibiotics at this time - supportive care PRN: zofran PRN for nausea, tylenol and ibuprofen PRN first line for pain control- dilaudid 0.25mg PRN for breakthrough pain; will continue home bentyl PRN for abdominal pain; continue IVF with LR at 100 mL/hr - GI consulted for further evaluation especially d/t new fecal output from rectum (which she has not had since her ileostomy 4 yrs ago) Hypomag/hypokalemia - secondary to vomiting/diarrhea - s/p 1g mag, 20 meq K in ED - continue to monitor with AM labs and replete PRN Hx of Crohn's disease - pt with 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 - pt has been on multiple medications in the past (including Entyvio, Remicade, methotrexate, and Humira); most recently, pt was switched from Stelara to Rinvoq (May 2023) - continue home Rinvoq 45 mg nightly Diet: NPO, advanced as tolerated VTE ppx: lovenox Code: DNR/DNI Dispo: admit to med/surg (2) Acute hypokalemia: (3) Ileostomy in place: (4) Crohn disease: History of Present Illness Chief Complaint: vomiting, diarrhea Primary Care Provider: Tammy Auguste DO Pt is a 58 yo female with PMH of Crohn's dx (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 Pt notes she began vomiting yesterday morning out of nowhere. She notes that she ate red meat and had a glass of red wine the night prior which is unusual for her. At first she thought this is what caused her symptoms, but they continued and worsened throughout the day. She also noticed stool coming from her rectum which is abnormal for her since having an ileostomy placed ~4 yrs ago. She notes she was recently switched from Stelara to Rinvoq for her Crohn's. She relays t hat she has only been on steroids "a few times" for flare ups in the past. In the ER, pt was given 2L NS, zofran 4 mg x1,dilaudid 0.5 mg x1, benadryl 25 mg x1, compazine x1, and fentanyl 50mcg x1. Allergies Allergy/AdvReac Type Severity Reaction Status Date / Time methotrexate Allergy Intermediate DEVELOPED Verified 08/03/23 20:24 ANTIBODIES-DIDN'T WORK adalimumab [From Humira] AdvReac Intermediate DEVELOPED Verified 08/03/23 20:24 ANTIBODIES-DIDN'T WORK infliximab [From Remicade] AdvReac Intermediate DEVELOPED Verified 08/03/23 20:24 ANTIBODIES-DIDN'T WORK vedolizumab [From Entyvio] AdvReac Intermediate DIDN'T Verified 08/03/23 20:24 WORK FAST ENOUGH TO HELP WITH CROHN'S DISEASE. Home Medications Medication Instructions Recorded Confirmed Type cetirizine 10 mg capsule (Zyrtec) 10 mg PO DAILY 02/22/19 08/03/23 History diphenhydramine HCl 25 mg capsule 25 mg PO HS PRN Sleep 02/22/19 08/03/23 History (Benadryl) pseudoephedrine HCl 30 mg tablet 30 mg PO DIRECTED PRN Congestion 02/22/19 08/03/23 History calcium carbonate (Calcium 600) 600 mg PO BID 09/25/21 08/03/23 History dicyclomine 20 mg tablet 20 mg PO TID PRN ABD PAIN 09/25/21 08/03/23 History glucosamine HCl 1,500 mg tablet 1,500 mg PO DAILY 09/25/21 08/03/23 History acetaminophen 500 mg tablet 1,500 mg PO BID PRN Pain 01/06/23 04/07/24 History (Tylenol Extra Strength) cholecalciferol (vitamin D3) 50 2,000 unit PO DAILY 05/03/22 08/03/23 History mcg (2,000 unit) capsule (Vitamin D3) valacyclovir 1 gram tablet 2,000 mg PO Q12H PRN Cold Sores 05/03/22 08/03/23 History albuterol sulfate 90 mcg/actuation 2 puff inhalation Q6H PRN 01/29/23 08/03/23 Rx aerosol inhaler (Ventolin HFA) Shortness Of Breath Or Wheezing #8.5 grams upadacitinib 45 mg tablet,extended 45 mg PO HS 07/09/23 08/03/23 History release 24 hr (Rinvoq) azelastine 137 mcg (0.1 %) nasal 2 spray intranasal DAILY 08/03/23 08/03/23 History spray aerosol cyclosporine 0.05 % eye drops in a 1 drp OPB BID 08/03/23 08/03/23 History dropperette (Restasis) prednisone 5 mg tablet See Taper PO DIRECTED #77 tabs 08/06/23 Rx Past Med/Surg History Medical History Crohn disease Ileostomy in place H/O sarcoma of soft tissue Leiomyoma of uterus, unspecified History of abnormal mammogram History of dysfunctional uterine bleeding History of ovarian cyst Surgical History S/P cholecystectomy H/O resection of small bowel History of wisdom tooth extraction History of endometrial ablation History of delivery H/O partial resection of colon Family History Mother Breast cancer Ovarian cancer Other SCC (squamous cell carcinoma) Denies family history of Crohn's disease Colorectal cancer Social History Smoking Status: Never smoker Do You Dip or Chew Tobacco: No; Hx Alcohol Use: Yes Alcohol type: wine Hx Substance Use: No Preferred Language: Swedish Communication Ability: Effective 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 Respiratory: CTA bilaterally. Non labored breathing. No rhonchi, wheezing, or crackles. Cardiovascular: RRR. No murmurs noted. No LE edema. Gastrointestinal (Abdomen): Nontender, +BS. No masses noted. Ileostomy in place and draining appropriately. Skin: No rashes or skin lesions noted. Neurologic: Sensation grossly intact. No FND appreciated. Psychiatric: Speech of normal pace and content. Mood and affect congruent. Results & Data Results & Data Vital Signs (Past 12 Hours) Vital Signs Temp Pulse Resp BP Pulse Ox O2 Del Method 08/03/23 22:00 89 18 157/83 H 92 Room Air 08/03/23 21:30 93 H 20 170/87 H 94 Room Air 08/03/23 20:30 93 H 20 169/62 H 96 Room Air 08/03/23 20:00 90 16 168/84 H 95 Room Air 08/03/23 19:59 87 08/03/23 19:26 36.8 C 104 H 17 176/84 H 95 Room Air Supervising Physician Co-Signing Physician Notes Attending addendum: I have physically seen this patient, have supervised the medical residents activities, and agree with the H&P unless as otherwise noted. Assessment and Plan: Intractable nausea/vomiting/Crohn's history/ileostomy secondary to colovesical fistula- New symptom of fecal output per rectum Stool PCR negative CT abdomen pelvis with large right lateral abdominal hernia. Diffuse wall thickening of the ascending, transverse, and proximal descending colon probably secondary to infection or inflammation Consult gastroenterology History of multiple medications in the past including Entyvio, Remicade, methotrexate and Humira, with recent switch from Stelara to Rinvok, which she takes 45mg nightly Zofran 4 mg IV every 6 hours as needed Acetaminophen 1 g IV every 8 hours as needed for mild pain or fever LR at 100 mL/h Dilaudid 0.25 mg IV every 4 hours as needed for breakthrough pain Hypokalemia hypomagnesemia- Secondary to vomiting and diarrhea Received magnesium 1 g IV and KCl 20 mEq IV riders in the ED Repeat laboratories in the a.m. Resident Activity Tracking Resident Involvement: Resident Care Provided Care Provided: [facility]
[2023-08-03 23:10] LABS: Adenovirus F 40/41 PCR Not Detected (NotDetected); Astrovirus PCR Not Detected (NotDetected); Campylobacter PCR Not Detected (NotDetected); Cryptosporidium PCR Not Detected (NotDetected); Cyclospora cayetanensis PCR Not Detected (NotDetected); Entamoeba histolytica PCR Not Detected (NotDetected); Enteroaggregative E.coli(EAEC) Not Detected (NotDetected); Enteropathogenic E.coli (EPEC) Not Detected (NotDetected); Enterotoxigenic E.coli (ETEC) Not Detected (NotDetected); Giardia lamblia PCR Not Detected (NotDetected); Norovirus GI/GII PCR Not Detected (NotDetected); Plesiomonas shigelloides PCR Not Detected (NotDetected); Rotavirus A PCR Not Detected (NotDetected); Salmonella PCR Not Detected (NotDetected); Sapovirus PCR Not Detected (NotDetected); Shiga-like Toxin E.coli (STEC) Not Detected (NotDetected); Shigella/Enteroinvasive E.coli Not Detected (NotDetected); Vibrio cholerae PCR Not Detected (NotDetected); Vibrio species PCR Not Detected (NotDetected); Yersinia enterocolitica PCR Not Detected (NotDetected)
[2023-08-03] MEDS: HYDROmorphone INJ 0.5 MG/0.5 ML SYR IV STA (23:12)
[2023-08-03] MEDS: PROCHLORPERAZINE 1 ML IV ONE (23:14)
[2023-08-03] MEDS: diphenhydrAMINE 50 MG/ML VIAL IV STA (23:16)
[2023-08-03] MEDS: POTASSIUM CHLORIDE / WTR 10 MEQ/100 ML PLCT IV SCH (23:17)
[2023-08-03 23:21] LABS: C Reactive Protein 9.68 mg/dl (0-0.5)
[2023-08-03] MEDS ORDERED: ONDANSETRON INJ 2 MG/ML 2 ML VIAL IV PRN (23:32)
[2023-08-03] MEDS ORDERED: MELATONIN 3 MG TAB PO PRN (23:32)
[2023-08-04] MEDS ORDERED: diphenhydrAMINE Capsule 25 MG CAP PO PRN (00:36)
[2023-08-04] MEDS ORDERED: IBUPROFEN 600 MG TAB PO PRN (00:36)
[2023-08-04] MEDS ORDERED: ALBUTEROL HFA 8 GM INHALER INH PRN (00:36)
[2023-08-04] MEDS ORDERED: HYDROmorphone INJ 0.5 MG/0.5 ML SYR IV PRN (00:36)
[2023-08-04] MEDS ORDERED: ARTIFICIAL TEARS OP PRN (00:44)
[2023-08-04] MEDS: LACTATED RINGER'S 1,000 ML IV SCH (00:45)
[2023-08-04] MEDS: PROCHLORPERAZINE 5 MG in SYRINGE 4 ML IV PRN (05:20)
[2023-08-04] MEDS: DICYCLOMINE HCL 20 MG TAB PO PRN (05:20)
[2023-08-04 06:52] LABS: Hematocrit (blood only) 33.4 % (37.0-47.0); Hemoglobin 11.6 g/dl (12.0-16.0); Mean Corpuscular Hemoglobin 32.9 pg (25.0-34.0); Mean Corpuscular Hgb Conc 34.7 g/dL (32.0-36.0); Mean Corpuscular Volume 94.6 fL (80.0-100.0); Mean Platelet Volume 9.8 fL (9.4-12.4); Platelet Count 253 K/uL (130-400); RDW Coefficient of Variation 12.4 % (11.5-14.5); Red Blood Count 3.53 M/uL (4.20-5.40); White Blood Count 5.02 K/ul (4.8-10.8)
[2023-08-04 07:09] LABS: BUN Creatinine Ratio 17.2 (10-20); Calcium 8.3 mg/dl (8.6-10.3); Creatinine Clr Calc Pharmacy 111.5 ml/min; Est GFR (African American) 117.8 ml/min; Est GFR (Non-African American) 101.6 ml/min; Magnesium 1.5 mg/dl (1.7-2.4); Potassium 3.3 mmol/L (3.5-5.1)
[2023-08-04] MEDS: ENOXAPARIN INJ 40 MG/0.4 ML SYR SQ SCH (08:41)
[2023-08-04] MEDS: CETIRIZINE HCL 10 MG TABLET PO SCH (08:41)
[2023-08-04] MEDS: POTASSIUM CHLORIDE / WTR 10 MEQ/100 ML PLCT IV SCH (09:24)
[2023-08-04] MEDS: MAGNESIUM SULFATE / D5W 1 GM/100 ML BAG IV SCH (09:24)
--- NOTE | 2023-08-04 10:35 | Hospitalist Progress Note ---
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 - lab work significant for no leukocytosis, lipase WNL, ESR neg, CRP 9.68 - respiratory biofire negative - stool biofire PCR neg - CTAP: large right lateral abdominal wall hernia, diffuse wall thickening of the ascending, transverse, and proximal descending colon (most likely secondary to infection or inflammation) - GI consulted - suspect Crohn's flare - start short course of steroids - Continue Rinvoq - pt does not appear to have an acute bacterial infection based on her non toxic appearance and stable VS; defer antibiotics at this time - supportive care PRN: zofran PRN for nausea, tylenol and ibuprofen PRN first line for pain control- dilaudid 0.25mg PRN for breakthrough pain; will continue home bentyl PRN for abdominal pain; continue IVF with LR at 100 mL/hr - will advance diet to clear liquids AM CBC, BMP, CRP (2) Acute hypokalemia: Plan: Also with hypomagnesemia - s/p 1g mag, 20 meq K in ED - ordered 2g mag and 20meq K /8 AM BMP and mag (3) Crohn disease: Plan: - pt with 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 - pt has been on multiple medications in the past (including Entyvio, Remicade, methotrexate, and Humira); most recently, pt was switched from Stelara to Rinvoq (May 2023) - continue home Rinvoq 45 mg nightly (4) Ileostomy in place: Plan Dispo: continued inpatient stay DVT proh: lovenox Admission and Anticipated Discharge Date Admission Date: August 03, 2023 Subjective Patient resting in bed. Nausea and vomiting have improved. Reports loose d iarrhea like stools via rectum everytime she goes to the bathroom - which is new since Friday. Has had the ostomy for 4 years and never had this Follows with GI and colorectal in [place] and [facility] in [place] Does report lower abdominal pain. Denies fever and chills Notfied by RN this afternoon about temp 37.3 and patient feeling flush, this was after administration of steroids, low suspicion for bacterial infection but will continue to monitor and check AM labs. Review of Systems Review of Systems: All systems reviewed & are unremarkable except as noted in Subjective Physical Exam Physical Exam: General: NAD, VS as above Resp: normal respiratory effort, lungs clear to auscultation CV: RRR, no murmur, Abd: normal bowel sounds,tenderness LLQ, soft, no guarding. ostomy in place Extremities: Moves all extremities, no edema Neuro: A&O x3, Skin: intact, no lesions noted Results & Data Results & Data Vital Signs (Past 12 Hours) Vital Signs Temp Pulse Pulse Resp BP BP Pulse Ox 08/04/23 07:38 36.9 C 94 H 16 121/70 92 08/04/23 00:20 36.6 C 89 18 149/80 H 95 08/04/23 00:19 88 18 140/87 91 08/04/23 00:03 88 18 140/87 91 O2 Del Method 08/04/23 07:38 Room Air 08/04/23 00:20 Room Air 08/04/23 00:19 Room Air 08/04/23 00:03 Room Air Laboratory Results CBC and chemistry and mag reviewed PG Care Time/CCT Total # of Minutes Spent Total Time Spent with Patient: Total time spent is greater than 50% in coordination of care (as documented) at patient's floor/unit and/or counseling patient: Coding Level of Care Code 15223 SUB INP/OBS CARE 2/35MIN Diagnoses Nausea & vomiting R11.2 Acute hypokalemia E87.6 Crohn disease K50.[address] Z93.2
--- NOTE | 2023-08-04 12:50 | Gastrointestinal Consultation ---
Date of Consultation August 04, 2023 Assessment & Plan (1) Colitis: Pleasant lady with Crohns disease admitted with abdominal cramping pain and now profuse diarrhea. CT shows she has colitis. 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 She has missed two doses of Rinvoq so I would let her take them when she can tolerate them. I think it is worthwhile to put her on a short course of steroids. History of Present Illness Reason for Consultation: abdominal pain Attending Physician: Pierre Ruffin History of Present Illness 58 year old patient who says her problems started as "diverticulitis" then evolved to "ulcerative colitis" and then she was diagnosed with Crohn's when she had a rectovaginal fistula. She has had a loop ileostomy performed. She was switched to Rinvoq recently for issues with her joints. Her joints are better but she doesn't feel her gut is improving. She has recently developed abdominal cramping and increased mucus production from her rectum. She says once she got hydrated she is now having explosive diarrhea from her rectum. When asked she feels like this is a Crohn's flare and not an infection. her last colonoscopy was a couple of years ago. Allergies Allergy/AdvReac Type Severity Reaction Status Date / Time methotrexate Allergy Intermediate DEVELOPED Verified 08/03/23 20:24 ANTIBODIES-DIDN'T WORK adalimumab [From Humira] AdvReac Intermediate DEVELOPED Verified 08/03/23 20:24 ANTIBODIES-DIDN'T WORK infliximab [From Remicade] AdvReac Intermediate DEVELOPED Verified 08/03/23 20:24 ANTIBODIES-DIDN'T WORK vedolizumab [From Entyvio] AdvReac Intermediate DIDN'T Verified 08/03/23 20:24 WORK FAST ENOUGH TO HELP WITH CROHN'S DISEASE. Home Medications Medication Instructions Recorded Confirmed Type cetirizine 10 mg capsule (Zyrtec) 10 mg PO DAILY 02/22/19 08/03/23 History diphenhydramine HCl 25 mg capsule 25 mg PO HS PRN Sleep 02/22/19 08/03/23 History (Benadryl) pseudoephedrine HCl 30 mg tablet 30 mg PO DIRECTED PRN Congestion 02/22/19 08/03/23 History calcium carbonate (Calcium 600) 600 mg PO BID 09/25/21 08/03/23 History dicyclomine 20 mg tablet 20 mg PO TID PRN ABD PAIN 09/25/21 08/03/23 History glucosamine HCl 1,500 mg tablet 1,500 mg PO DAILY 09/25/21 08/03/23 History acetaminophen 500 mg tablet 1,500 mg PO BID PRN Pain 05/03/22 08/03/23 History (Tylenol Extra Strength) cholecalciferol (vitamin D3) 50 2,000 unit PO DAILY 05/03/22 08/03/23 History mcg (2,000 unit) capsule (Vitamin D3) valacyclovir 1 gram tablet 2,000 mg PO Q12H PRN Cold Sores 05/03/22 08/03/23 History albuterol sulfate 90 mcg/actuation 2 puff inhalation Q6H PRN 01/29/23 08/03/23 Rx aerosol inhaler (Ventolin HFA) Shortness Of Breath Or Wheezing #8.5 grams upadacitinib 45 mg tablet,extended 45 mg PO HS 07/09/23 08/03/23 History release 24 hr (Rinvoq) azelastine 137 mcg (0.1 %) nasal 2 spray intranasal DAILY 08/03/23 08/03/23 History spray aerosol cyclosporine 0.05 % eye drops in a 1 drp OPB BID 08/03/23 08/03/23 History dropperette (Restasis) Patient History Medical History Crohn disease Ileostomy in place H/O sarcoma of soft tissue Leiomyoma of uterus, unspecified History of abnormal mammogram History of dysfunctional uterine bleeding History of ovarian cyst Surgical History S/P cholecystectomy H/O resection of small bowel History of wisdom tooth extraction History of endometrial ablation History of delivery H/O partial resection of colon Family History Mother Breast cancer Ovarian cancer Other SCC (squamous cell carcinoma) Denies family history of Crohn's disease Colorectal cancer Social History Smoking Status: Never smoker Do You Dip or Chew Tobacco: No; Hx Alcohol Use: Yes Alcohol type: wine Hx Substance Use: No Preferred Language: Yakut Communication Ability: Effective 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 Beliefs That Will Affect Care: None marital status: Current Living Situation: Spouse Current Living Situation Comment: lives in 2 story home with Other Information That Helps Us Care for You: No Feels Safe at Home: Yes Safety Concerns: Feels Safe At This Time Assistive Devices: None Review of Systems Review of Systems: All systems reviewed & are unremarkable except as noted in HPI & below Physical Exam Physical Exam: She looks well Constitutional: WD/WN, vitals as above Eyes: PERRL, conjunctivae normal, anicteric sclerae Neck: trachea midline, no thyromegaly Respiratory: normal respiratory effort, lungs clear to auscultation Cardiovascular: RRR, no murmur, no edema Gastrointestinal (Abdomen): Inspection/Auscultation: + abdomen abnormal to inspection (stoma present in RLQ, scarring present) Percussion/Palpation: + abdomen tender and abdomen soft Musculoskeletal: Extremities: extremities normal to inspection Results & Data Vital Signs (Past 12 Hours) Vital Signs Temp Pulse Resp BP Pulse Ox O2 Del Method 08/04/23 07:38 36.9 C 94 H 16 121/70 92 Room Air
[2023-08-04] MEDS: methylPREDNISolone 40 MG in SYRINGE 0 ML IV SCH (14:09)
[2023-08-04] MEDS: ACETAMINOPHEN 325 MG TAB PO PRN (14:15)
[2023-08-05 06:58] LABS: Hematocrit (blood only) 33.2 % (37.0-47.0); Hemoglobin 11.6 g/dl (12.0-16.0); Mean Corpuscular Hemoglobin 32.4 pg (25.0-34.0); Mean Corpuscular Hgb Conc 34.9 g/dL (32.0-36.0); Mean Corpuscular Volume 92.7 fL (80.0-100.0); Platelet Count 267 K/uL (130-400); RDW Coefficient of Variation 12.1 % (11.5-14.5); RDW Standard Deviation 41.3 fL (36.4-46.3); Red Blood Count 3.58 M/uL (4.20-5.40); White Blood Count 2.88 K/ul (4.8-10.8)
[2023-08-05 07:20] LABS: BUN Creatinine Ratio 16.7 (10-20); C Reactive Protein 11.85 mg/dl (0-0.5); Calcium 8.9 mg/dl (8.6-10.3); Creatinine Clr Calc Pharmacy 119.8 ml/min; Est GFR (African American) 120.6 ml/min; Magnesium 1.8 mg/dl (1.7-2.4); Potassium 3.6 mmol/L (3.5-5.1)
--- NOTE | 2023-08-05 12:02 | Hospitalist Progress Note ---
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 - lab work significant for no leukocytosis, lipase WNL, ESR neg, CRP 9.68 - respiratory biofire negative - stool biofire PCR neg - CTAP: large right lateral abdominal wall hernia, diffuse wall thickening of the ascending, transverse, and proximal descending colon (most likely secondary to infection or inflammation) - GI consulted - suspect Crohn's flare - start short course of steroids - Continue Rinvoq - has missed 3 doses at this point - pt does not appear to have an acute bacterial infection based on her non toxic appearance and stable VS; defer antibiotics at this time - tolerating clear liquids, advance to full liquids, stop IV fluids CRP increased from 9 to 11, no new evidence for acute bacterial infection. will continue to trend hgb stable with current GI bleeding - suspect hemorrhoid vs secondary to flare AM CBC, BMP, CRP (2) Acute hypokalemia: Plan: Also with hypomagnesemia - s/p 1g mag, 20 meq K in ED -08/03 ordered 2g mag and 20meq K Improved Mag and K today, no replacement needed. (3) Crohn disease: Plan: - pt with 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 - pt has been on multiple medications in the past (including Entyvio, Remicade, methotrexate, and Humira); most recently, pt was switched from Stelara to Rinvoq (May 2023) - continue home Rinvoq 45 mg nightly (4) Ileostomy in place: Plan Dispo: continued inpatient stay DVT proh: lovenox Admission and Anticipated Discharge Date Admission Date: August 03, 2023 Subjective Patient ambulating around the room - had a shower, overall feels better but bowel movements are off. Was able to tolerate some clear liquids last night, but then had increased bloody mucous output from her rectum this morning. She had another bowel movement since then, that she describes as mucous and water with a slight bit of blood. + blood when wiping ostomy output has been decreased, but no blood has tolerated some water since this morning and has just received her lunch tray Review of Systems Review of Systems: All systems reviewed & are unremarkable except as noted in Subjective Physical Exam Physical Exam: General: NAD, VS as above, appears better than yesterday Resp: normal respiratory effort, lungs clear to auscultation CV: RRR, no murmur, Abd: normal bowel sounds,tenderness LLQ - improved, soft, no guarding. ostomy in place Extremities: Moves all extremities, no edema Neuro: A&O x3, Skin: intact, no lesions noted Results & Data Results & Data Vital Signs (Past 12 Hours) Vital Signs Temp Pulse Resp BP Pulse Ox O2 Del Method 08/05/23 07:33 36.8 C 85 16 161/95 H 91 Room Air Laboratory Results CBC, chemistry, mag and Crp reviewed PG Care Time/CCT Total # of Minutes Spent Total Time Spent with Patient: Total time spent is greater than 50% in coordination of care (as documented) at patient's floor/unit and/or counseling patient: Coding Level of Care Code 92536 SUB INP/OBS CARE 2/35MIN Diagnoses Nausea & vomiting R11.2 Acute hypokalemia E87.6 Crohn disease K50.[address] Z93.2
--- NOTE | 2023-08-05 16:18 | Gastroenterology Progress Note ---
Date of Service August 05, 2023 Assessment & Plan (1) Colitis: Plan: She seems to be responding well to steroids. Probably will be ready for discharge tomorrow. If so would send her home on 30 of prednisone tapering by 5 mg each week. She will follow up with regular GI docs Admission and Anticipated Discharge Date Admission Date: August 03, 2023 Subjective Feels much better today. No pain. Still with diarrhea and had bloody stool this morning but overall diarrhea better as well Physical Exam Constitutional: WD/WN, vitals as above Results & Data Vital Signs (Past 12 Hours) Vital Signs Temp Pulse Resp BP Pulse Ox O2 Del Method 08/05/23 15:38 36.6 C 86 16 159/92 H 95 Room Air 08/05/23 07:33 36.8 C 85 16 161/95 H 91 Room Air
[2023-08-05] MEDS: UPADACITINIB 45 MG PO SCH (20:40)
[2023-08-06 07:42] LABS: Hematocrit (blood only) 33.4 % (37.0-47.0); Hemoglobin 11.4 g/dl (12.0-16.0); Mean Corpuscular Hgb Conc 34.1 g/dL (32.0-36.0); Mean Corpuscular Volume 93.8 fL (80.0-100.0); Platelet Count 284 K/uL (130-400); RDW Coefficient of Variation 12.2 % (11.5-14.5); RDW Standard Deviation 42.5 fL (36.4-46.3); Red Blood Count 3.56 M/uL (4.20-5.40); White Blood Count 3.59 K/ul (4.8-10.8)
[2023-08-06 08:11] LABS: BUN Creatinine Ratio 20.8 (10-20); C Reactive Protein 5.76 mg/dl (0-0.5); Calcium 9.3 mg/dl (8.6-10.3); Est GFR (African American) 121.3 ml/min; Est GFR (Non-African American) 104.7 ml/min; Magnesium 1.7 mg/dl (1.7-2.4); Potassium 3.7 mmol/L (3.5-5.1)
--- NOTE | 2023-08-06 10:51 | Discharge Summary ---
Discharge Summary Date of Service August 06, 2023 Notes For Next Care Provider Admitted for nausea and vomiting - found to be a chron's flare after missing a few doses of her rinvoq. Day of discharge, n/v/d and abdominal pain has greatly improved and discharged with steroid taper. Patient will contact her primary GI team at [email or web address] for follow up. 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 Pt notes she began vomiting yesterday morning out of nowhere. She notes that she ate red meat and had a glass of red wine the night prior which is unusual for her. At first she thought this is what caused her symptoms, but they continued and worsened throughout the day. She also noticed stool coming from her rectum which is abnormal for her since having an ileostomy placed ~4 yrs ago. She notes she was recently switched from Stelara to Rinvoq for her Crohn's. She relays that she has only been on steroids "a few times" for flare ups in the past. In the ER, pt was given 2L NS, zofran 4 mg x1,dilaudid 0.5 mg x1, benadryl 25 mg x1, compazine x1, and fentanyl 50mcg x1. 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 - lab work significant for no leukocytosis, lipase WNL, ESR neg, CRP 9.68 - non toxic with stable VS - antibiotics deferred - respiratory biofire negative - stool biofire PCR neg - CTAP: large right lateral abdominal wall hernia, diffuse wall thickening of the ascending, transverse, and proximal descending colon (most likely secondary to infection or inflammation) - GI consulted - suspect Crohn's flare - Continue Rinvoq - has missed 3 doses at this point - discharge with prednisone taper, starting at 30mg decreasing by 5mg every week CRP now downtrending. Hgb stable - no further GI bleeding. Tolerating low fiber diet, discharge to home today (2) Acute hypokalemia: Also with hypomagnesemia - s/p 1g mag, 20 meq K in ED -08/03 ordered 2g mag and 20meq K Improved Mag and K today, no replacement needed. stable (3) Crohn disease: - pt with 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 - pt has been on multiple medications in the past (including Entyvio, Remicade, methotrexate, and Humira); most recently, pt was switched from Stelara to Rinvoq (May 2023) - continue home Rinvoq 45 mg nightly (4) Ileostomy in place: Plan Dispo: discharge to home, with follow up with primary GI team at [facility] Discharge Exam General: NAD, VS as above, appears better than yesterday Resp: normal respiratory effort, lungs clear to auscultation CV: RRR, no murmur, Abd: normal bowel sounds,tenderness LLQ - improved, soft, no guarding. ostomy in place Neuro: A&O x3, Updated Medication List Medication Instructions Recorded Confirmed Type cetirizine 10 mg capsule (Zyrtec) 10 mg PO DAILY 02/22/19 08/03/23 History diphenhydramine HCl 25 mg capsule 25 mg PO HS PRN Sleep 02/22/19 08/03/23 History (Benadryl) pseudoephedrine HCl 30 mg tablet 30 mg PO DIRECTED PRN Congestion 02/22/19 08/03/23 History calcium carbonate (Calcium 600) 600 mg PO BID 09/25/21 08/03/23 History dicyclomine 20 mg tablet 20 mg PO TID PRN ABD PAIN 09/25/21 08/03/23 History glucosamine HCl 1,500 mg tablet 1,500 mg PO DAILY 09/25/21 08/03/23 History acetaminophen 500 mg tablet 1,500 mg PO BID PRN Pain 05/03/22 08/03/23 History (Tylenol Extra Strength) cholecalciferol (vitamin D3) 50 2,000 unit PO DAILY 05/03/22 08/03/23 History mcg (2,000 unit) capsule (Vitamin D3) valacyclovir 1 gram tablet 2,000 mg PO Q12H PRN Cold Sores 05/03/22 08/03/23 History albuterol sulfate 90 mcg/actuation 2 puff inhalation Q6H PRN 01/29/23 08/03/23 Rx aerosol inhaler (Ventolin HFA) Shortness Of Breath Or Wheezing #8.5 grams upadacitinib 45 mg tablet,extended 45 mg PO HS 07/09/23 08/03/23 History release 24 hr (Rinvoq) azelastine 137 mcg (0.1 %) nasal 2 spray intranasal DAILY 08/03/23 08/03/23 History spray aerosol cyclosporine 0.05 % eye drops in a 1 drp OPB BID 08/03/23 08/03/23 History dropperette (Restasis) prednisone 5 mg tablet See Taper PO DIRECTED #77 tabs 08/06/23 Rx Hospital Stay Data Consultations 08/03/23 22:37 ED Decision to Admit Stat 08/03/23 23:58 Consult Gastroenterology Routine Diagnostic Imagining Performed Abdomen/Pelvis CT 08/03/23 19:31 Exam(s): CT ABDOMEN + PELVIS With Contrast IV Amt: 90ml EXAM: CT Abdomen and Pelvis With Intravenous Contrast CLINICAL HISTORY: Reason for exam: vomiting; lower abdominal cramping. TECHNIQUE: Axial computed tomography images of the abdomen and pelvis with intravenous contrast. CTDI is 22.49 mGy and DLP is 1142.97 mGy-cm. Automated exposure control was utilized for the study. A dose lowering technique was utilized adhering to the principles of ALARA. CONTRAST: Patient received 90ml of IV contrast COMPARISON: No relevant prior studies available. FINDINGS: Lung bases: Unremarkable. No mass. No consolidation. ABDOMEN: Liver: Fatty infiltration of the liver. Gallbladder and bile ducts: Prior cholecystectomy. No ductal dilation. Pancreas: Unremarkable. No mass. No ductal dilation. Spleen: Unremarkable. No splenomegaly. Adrenals: Unremarkable. No mass. Kidneys and ureters: Unremarkable. No solid mass. No hydronephrosis. Stomach and bowel: Right lower quadrant ostomy with large fat and omentum-containing right lateral abdominal wall ventral hernia. Diffuse wall thickening of the ascending, transverse and proximal descending colon with scattered diverticuli and moderate mesenteric edema and prominent vasa recta, likely represents infectious or inflammatory process. PELVIS: Appendix: No findings to suggest acute appendicitis. Bladder: Unremarkable. No mass. Reproductive: Unremarkable as visualized. ABDOMEN and PELVIS: Intraperitoneal space: Unremarkable. No free air. No significant fluid collection. Bones/joints: No acute fracture. No dislocation. Soft tissues: See above. Vasculature: 9 mm partially calcified distal splenic artery aneurysm. A second partially calcified splenic artery aneurysm measuring 6 mm. Lymph nodes: Unremarkable. No enlarged lymph nodes. IMPRESSION: 1. Right lower quadrant ostomy with large fat and omentum-containing right lateral abdominal wall ventral hernia. 2. Diffuse wall thickening of the ascending, transverse and proximal descending colon with scattered diverticuli and moderate mesenteric edema and prominent vasa recta, likely represents infectious or inflammatory process. Electronically signed by: Nelly Colon MD 08/03/23 22:23 PM Pending Results Patient Have Any Pending Studies at Discharge: No Discharge Instructions Given to Patient (Per Discharging Provider) Ms. Stoll, Kaleb were hospitalized after having uncontrolled nausea and vomiting that was found to be a Chron's flare. We did stool testing that did not show any infection. You had a CT scan done that showed inflammation (consistent with Chron's) but no other acute findings. I had these images sent to [place] so your providers can review them. You were seen by our GI team, that recommended a steroid taper at discharge. They recommended 30mg of prednisone, tapering by 5 mg each week. I have sent the first two weeks of this taper in to your pharmacy, but you will touch base with your primary GI team on how they want you to proceed. I would recommend following up with your [place] GI team in the next few weeks. Continue a low fiber diet for the next few days while your bowel movements continue to normalize. I have attached a handout about this below. Thank you for allowing us to participate in your care, Phuong Ball PA-C Total Time Total Time Spent Total Time Spent (In Minutes): Time spend day of discharge 35 minutes including direct patient care, medication reconciliation, documentation, review of labs and images, and coordination of care. Supervising Physician Co-Signing Physician Notes During face to face encounter, I obtained a brief physical examination, discussed hospital stay with patient and discharge instructions with patient. I discussed discharge plan of care with SHILPI Ball. I reviewed above note and agree with it except for the following: Patient will discuss with her primary GI provider to confirm if they agree wit above plain for her Crohns flair. Coding Level of Care Code 81380 INP/OBS DISCH >30 MIN Diagnoses Nausea & vomiting R11.2 Acute hypokalemia E87.6 Crohn disease K50.[address] Z93.2
--- NOTE | 2023-08-11 21:29 | Billing Data ---
Date of Service August 11, 2023 Coding Level of Care Code 32610 INT INP/OBS CARE
== END 2023-08-06 12:49 | disposition home or self-care (01) | DRG 387 ==
LOC: ED 19:24 → 3W 23:32 → SUATTDRO 23:32 → 3W 08-04 00:19
DX: Z79.899 Other long term (current) drug therapy; K50.90 Crohn's disease, unspecified, without complications; Z93.2 Ileostomy status; K52.9 Noninfective gastroenteritis and colitis, unspecified; E87.6 Hypokalemia; Z88.8 Allergy status to other drugs, medicaments and biological substances; Z85.831 Personal history of malignant neoplasm of soft tissue; E83.42 Hypomagnesemia; Z79.52 Long term (current) use of systemic steroids; K43.9 Ventral hernia without obstruction or gangrene